=== PATIENT | male | born 1970 | race Caucasian/White ===

== ENCOUNTER 2024-08-26 12:11 | Emergency (ER) | payer MEDICAID, SELFPAY ==
--- NOTE | 2024-08-26 12:17 | XR_ITS ---
Examination: CT abdomen and pelvis without contrast. Coronal 3-D reconstructions. Sagittal 2-D reconstructions. Date and time of exam:August 26, 2024 1409 hrs. Comparison April 06, 2014 Indications: Right-sided flank pain beginning 3 days ago CTDI: vol (mGy): 8.33 DLP: (mGycm): 561 Technique: Axial images of the abdomen have been obtained, 3 mm slice thickness Intravenous contrast material has not been administered. Low dose protocols were performed. One or more of the following dose reduction techniques were used; automated exposure control, adjustment of the mA and/or KV according to patient size, use of iterative reconstruction technique. Findings: Mild nodular parenchymal disease left base No focal liver or splenic lesion No gallstones No pancreatic or adrenal mass Mild right hydronephrosis and perinephric stranding secondary to 2 mm distal right ureterovesical junction calculus Aorta normal size No bowel obstruction Normal appendix No bladder mass Impression: Mild right hydronephrosis secondary to 2 mm distal right ureterovesical junction calculus
--- NOTE | 2024-08-26 12:18 | PD.EDADULT ---
ED General RME/HPI General Chief complaint: Abdominal Pain Stated complaint: RIGHT FLANK PAIN Time Seen by Provider: 08/26/24 12:16 Arrival date/time: 08/26/24 12:11 CC: Right flank pain HPI abrupt onset after waking up this morning, no prior history of similar events no OTC medicines taken for the pain, no regular scheduled medications no allergies no primary care doctor. EMS reports stable vital signs and route no pain medications given and route. Patient is holding himself rigidly in the gurney tachypneic secondary to the pain stating the pain radiates to the right inguinal crease. Related Data Home Medications ?Medication ?Instructions ?Recorded ?Confirmed No Known Home Medications 09/19/17 08/26/24 Previous Rx's ?Medication ?Instructions ?Recorded ketorolac 10 mg tablet 10 mg PO Q8H PRN pain 3 days #7 08/26/24 tabs ondansetron 4 mg disintegrating 4 mg PO Q8H #10 tabs 08/26/24 tablet Allergies Allergy/AdvReac Type Severity Reaction Status Date / Time No Known Allergies Allergy Verified 08/26/24 12:48 Review of Systems Review of Systems Narrative Review of Systems: GEN: No fever, no chills, no weight loss EYES: No discharge, no visual changes, no pain HEENT: No ear pain, no congestion, no sore throat PULM: No shortness of breath, no cough, no congestion CV: No chest pain, no dyspnea on exertion, no palpitations GI: No nausea, no vomiting, no diarrhea, no pain, no constipation : No frequency, no urgency, no dysuria MUSC/SKEL: No joint pain, + back pain SKIN: No rash PSYCH: No hallucinations, no depression HEME/LYMPH: No easy bleeding or bruising tendencies NEURO: No weakness, no headache Past Medical History Social History SMOKING STATUS: Never smoker ED Exam Narrative Physical exam: [General: In moderate discomfort not in any acute distress Head normocephalic HEENT: Within acceptable limits Neck is supple nontender Chest equal chest rise nontender to palpation Respiratory: Clear to auscultation no wheezes crackles or rubs CV: Rate rhythm is regular no murmurs rubs or clicks Abdomen is distended secondary to body habitus soft nontender no masses positive bowel sounds all 4 quadrants Back: Right CVA tenderness, no left CVA tenderness, no spinous process tenderness from cervical spine thoracic and lumbar spine Skin: Intact no petechiae rash induration ulceration or crepitus Extremities: Moving all extremity against resistance cap refill less than 2 seconds neurosensory intact Neuro: Awake alert oriented x3 Glascow coma 15 no focal deficits] Course Quality Measures none Orders Category Date Time Status Saline [Insert IV] NOW Care 08/26/24 12:[address] abdomen pelvis wo con Stat Exams 08/26/24 12:17 Completed CBC Stat Lab 08/26/24 12:44 Completed CMP [Comprehensive Metabolic Panel] Stat Lab 08/26/24 12:44 Completed Ketorolac Inj [Toradol Inj] Med 08/26/24 12:17 Discontinued 30 mg IVP X1 ONE oxyCODONE/APAP 5/325 [Percocet 5/325] Med 08/26/24 13:15 Discontinued 1 tab PO X1 ONE Vital Signs Vital signs: Vital Signs Temperature 97.8 F 08/26/24 12:19 Pulse Rate 105 H 08/26/24 12:19 Respiratory Rate 20 08/26/24 12:19 Blood Pressure 145/87 H 08/26/24 12:19 Pulse Oximetry (%) 96 08/26/24 12:19 Oxygen Delivery Method Room Air 08/26/24 12:[address] [facility] Patient data External records reviewed:: [facility] previous records and EMS form Clinical information provided by:: patient and EMS Social determinants that could affect healthcare access:: none Patient has the following chronic illnesses:: None How is presenting disease/condition affected by chronic disease/condition?: uneffected by Evaluation data The following diagnostics were reviewed and interpreted by me:: lab results and radiology exam(s) Lab and/or radiology exams considered but not ordered:: CBC shows no significant leukocytosis anemia thrombocytopenia The CMP shows an elevated creatinine of 1.4 but no electrolyte imbalances other renal impairment transaminitis or T. bili elevation. CT shows a 2 mm stone with hydro-. Interpretation Summary: Flank pain with secondary to a 2 mm stone and hydronephrosis Medications Medications considered but not ordered:: None Medication administrations:: Medication Administration History Discontinued Medications Ketorolac Tromethamine (Ketorolac Inj 30 Mg/Ml Vial) 30 mg IVP X1 ONE Stop: 08/26/24 12:18 Last Admin: 08/26/24 13:27 Dose: Not Given Documented By: DO Non-Admin Reason: Patient Refused Oxycodone/Acetaminophen (Oxycodone/Apap 5/325 Tablet) 1 tab PO X1 ONE Stop: 08/26/24 13:16 Last Admin: 08/26/24 13: Dose: 1 tab Documented By: DO None Consultations Consultation(s) initiated? (list below): No Diagnosis Differential Diagnosis ED Complaint MDM: Hydroureter hydronephrosis urolithiasis Most likely diagnosis given after review of the tests above:: Urolithiasis Admission Indicated Admission indicated?: not indicated Explain why admission is indicated or not indicated:: Stable for outpatient follow-up Admission Request Was there a request for admission?: No Disposition Plan Disposition Plan: Discharge Discharge Attestation Discharge Attestation: The patient and all family members were given an opportunity to ask questions and understood the discharge instructions. Discharge instructions specifically effects, indications for sooner follow up or return to the emergency department, and the expected course of current diagnosis. Patient condition: Stable Medical Decision Making Differential Diagnosis Differential Diagnosis: Hydroureter hydronephrosis urolithiasis Lab Data 08/26/24 12:44 08/26/24 12:44 Labs: Lab Results 08/26/24 Range/Units 12:44 WBC 11.0 H (3.8-10.6) Thou/mm3 RBC 5.17 (4.50-5.90) Miln/mm3 Hgb 15.7 (13.5-16.0) g/dL Hct 43.4 (41.0-53.0) % MCV 84 (80-100) fL MCH 30.4 (25.0-35.0) pg MCHC 36.2 (31.0-37.0) g/dl RDW Std Deviation 36.4 (35.1-43.9) fL Plt Count 215 (140-440) Thou/mm3 Neut % (Auto) 71 (37-80) % Lymph % (Auto) 22 (10-50) % Wilkinson % (Auto) 7 (0-12) % Eos % (Auto) 1 (0-10) % Baso % (Auto) 0 (0-2.5) % Neut # (Auto) 7.8 H (1.8-7.7) Thou/mm3 Lymph # (Auto) 2.4 (1.0-4.8) Thou/mm3 Wilkinson # (Auto) 0.7 (0.0-0.8) Thou/mm3 Eos # (Auto) 0.1 (0.0-0.5) Thou/mm3 Baso # (Auto) 0.0 (0.0-0.2) Thou/mm3 Immature Gran # (Auto) 0.03 H (0.00-0.00) Thou/mm3 Absolute Nucleated RBC 0.00 (0.00-0.00) Thou/mm3 Immature Gran % 0 (0-0) % Nucleated RBC % 0 (0) /100 WBC Sodium 135 L (136-145) mMol/L Potassium 3.9 (3.4-5.1) mMol/L Chloride 101 (98-107) mMol/L Carbon Dioxide 24.0 (20.0-31.0) mMol/L Anion Gap 10 (7-16) BUN 17 (9-23) mg/dL Creatinine 1.4 H (0.6-1.3) mg/dL Estim Creat Clear Calc 70.7 (>60) mL/min eGFR > 60 (60 - ) See Note BUN/Creatinine Ratio 12 (12-20) Ratio Glucose 115 H (74-106) mg/dL Calculated Osmolality 272 L (275-295) Calcium 9.6 (8.3-10.6) mg/dL Corrected Calcium 9.6 (8.5-10.1) mg/dL Total Bilirubin 1.0 (0.3-1.2) mg/dL AST 28 (0-34) U/L ALT 40 (10-49) U/L Alkaline Phosphatase 96 (46-116) U/L Total Protein 7.2 (5.7-8.2) gm/dL Albumin 4.1 (3.5-5.0) gm/dL Globulin 3.1 (2.3-3.5) gm/dL Albumin/Globulin Ratio 1.3 (1.2-2.2) Discharge Plan Plan Patient Disposition: HOME (Self Care) Patient condition on transfer: Stable Prescriptions/Referrals Prescriptions/Med Rec: New ketorolac 10 mg tablet 10 mg PO Q8H PRN (Reason: pain) 3 Days Qty: 7 0RF ondansetron 4 mg tablet,disintegrating 4 mg PO Q8H Qty: 10 0RF No Action No Known Home Medications Referrals: Louie De Leon MD [Physician] - In 1 week Problem List Clinical Impression: Urolithiasis, Flank pain Patient/Caregiver Discharge Instructions Education Materials: Identifying Kidney Stones Additional Instructions: Take the medications as prescribed drink plenty of water follow-up with the doctor listed above. If there is worsening of symptoms spite of the medications return the emergency room for reevaluation. Print Language: [place] Island[place] Stand Alone Forms: [employer] Award Info., Patient Portal Info Letter, Work/School Release PA/LACE FINISHER Supervising Physician PA/LACE FINISHER Supervising Physician: Rayray Polo ENP
[2024-08-26 12:19] VITALS: BP 145/87; PULSE 105; RESP 20; TEMP 36.6; O2SAT 96
[2024-08-26 12:20] VITALS: BMI 33.4
[2024-08-26 12:44] VITALS: PULSE 66; RESP 18; O2SAT 98
--- NOTE | 2024-08-26 12:49 | PC.NURSE ---
PT BROUGHT IN BY EMS WITH C/O R FLANK PAIN SINCE THIS AM. PT STATES THAT HE WAS JUST SITTING DOWN WHEN PAIN STARTED. PT RATE PAIN 10/10. PT ALSO C/O SOB. NO RESPIRATORY DISTRESS NOTED. PT IN ROOM 4 AT THIS TIME
[2024-08-26 12:55] LABS: Basophils % (Auto) 0 % (0-2.5); Eosinophils # (Auto) 0.1 Thou/mm3 (0.0-0.5); Eosinophils % (Auto) 1 % (0-10); Hematocrit 43.4 % (41.0-53.0); Hemoglobin 15.7 g/dL (13.5-16.0); Immature Granulocytes % (Auto) 0 % (0-0); Immature Granulocytes Auto 0.03 Thou/mm3 (0.00-0.00); Lymphocytes # (Auto) 2.4 Thou/mm3 (1.0-4.8); Lymphocytes % (Auto) 22 % (10-50); Mean Corpuscular HGB Conc 36.2 g/dl (31.0-37.0); Mean Corpuscular Hemoglobin 30.4 pg (25.0-35.0); Mean Corpuscular Volume 84 fL (80-100); Monocytes # (Auto) 0.7 Thou/mm3 (0.0-0.8); Monocytes % (Auto) 7 % (0-12); Neutrophils # (Auto) 7.8 Thou/mm3 (1.8-7.7); Neutrophils % (Auto) 71 % (37-80); Nucleated Red Blood Cell % 0 /100 WBC (0); Platelet Count 215 Thou/mm3 (140-440); RDW Standard Deviation 36.4 fL (35.1-43.9); Red Blood Count 5.17 Miln/mm3 (4.50-5.90)
[2024-08-26 13:16] LABS: Alanine Aminotransferase 40 U/L (10-49); Albumin, Serum 4.1 gm/dL (3.5-5.0); Albumin/Globulin Ratio 1.3 (1.2-2.2); Alkaline Phosphatase 96 U/L (46-116); Anion Gap 10 (7-16); Aspartate Amino Transferase 28 U/L (0-34); BUN/Creatinine Ratio 12 Ratio (12-20); Blood Urea Nitrogen 17 mg/dL (9-23); Calcium 9.6 mg/dL (8.3-10.6); Calcium (Corrected) 9.6 mg/dL (8.5-10.1); Chloride 101 mMol/L (98-107); Creatinine (Component) 1.4 mg/dL (0.6-1.3); Estimated Creatinine Clearance 70.7 mL/min (>60); Globulin 3.1 gm/dL (2.3-3.5); Glucose 115 mg/dL (74-106); Osmolality,Calculated 272 (275-295); Potassium 3.9 mMol/L (3.4-5.1); Sodium 135 mMol/L (136-145); Total Protein 7.2 gm/dL (5.7-8.2); eGFR > 60 See Note
[2024-08-26] MEDS: oxyCODONE/APAP 5/325 TABLET 1 TAB PO (13:25)
[2024-08-26 14:56] VITALS: BP 130/82; PULSE 71; RESP 19; TEMP 36.7; O2SAT 92
[2024-08-26 15:57] VITALS: BP 109/76; PULSE 68; RESP 18; O2SAT 94
== END 2024-08-26 15:57 | disposition home or self-care (01) ==
PROVIDERS: Registered Nurse General Practice; Emergency Provider Emergency Medicine
DX: N13.2 Hydronephrosis with renal and ureteral calculous obstruction (principal)
CPT/HCPCS: 36415; 74176; 80053; 85025; 99284; A9270

== ENCOUNTER 2025-04-06 09:45 | Emergency (ER) | payer MEDICAID, SELFPAY ==
[2025-04-06 09:46] VITALS: BMI 31.9
[2025-04-06 10:24] VITALS: BP 118/82; PULSE 86; RESP 18; TEMP 36.9; O2SAT 96
--- NOTE | 2025-04-06 10:48 | PD.EDADULT ---
ED General RME/HPI General Chief complaint: General Adult/Misc Complain Stated complaint: REQUESTING STD CHECK Time Seen by Provider: 04/06/25 09:50 Arrival date/time: 04/06/25 09:45 This is a 55-year-old male that is accompanied by his significant other with complaints of wanting an STD check. Patient significant other was positive for trichomonas and they are still awaiting other cultures. Patient wants to get treated for this and checked for possible STDs. Patient has no symptoms patient has no complaints. Related Data Home Medications ?Medication ?Instructions ?Recorded ?Confirmed No Known Home Medications 09/19/17 08/26/24 Previous Rx's ?Medication ?Instructions ?Recorded ondansetron 4 mg disintegrating 4 mg PO Q8H #10 tabs 08/26/24 tablet Allergies Allergy/AdvReac Type Severity Reaction Status Date / Time No Known Allergies Allergy Verified 04/06/25 09:49 Review of Systems Review of Systems Systems Reviewed: All systems reviewed, normal except as documented Past Medical History Social History SMOKING STATUS: Never smoker ED Exam Narrative Physical exam: VITAL SIGNS: Reviewed. GENERAL APPEARANCE: Alert and interactive, follows commands, no acute distress HEAD AND FACE: Non-traumatic. ENT: PERRL, conjuctiva pink and clear, eyelid no trauma, Mucous membrane moist. NECK: Supple, nontender, no nuchal rigidity. CHEST: No tenderness, no crepitus, no paradoxical movement, no retractions. LUNGS: breathing even and unlabored HEART: Regular rate, cap refill less than 2 seconds ABDOMEN: Soft, nondistended, no guarding, nontender, no rebound, no masses, NEUROLOGICAL: Gross motor function intact sensory function intact, Appropriate for age. MUSCULOSKELETAL: low back nontender, full range of motion. EXTREMITIES: No redness no swelling no skin breakdown on bilateral foot and leg. Distal neurovascular status intact bilateral foot SKIN: Color pink, dry, no rash, no lacerations, no abrasions, no contusions. Course Quality Measures none Orders Category Date Time Status Urinalysis, C/S if Indicated Stat Lab 04/06/25 10:40 Completed Metoclopramide [Reglan] Med 04/06/25 12:42 Discontinued 10 mg PO X1 ONE Ondansetron Odt [Zofran Odt] Med 04/06/25 13:12 Discontinued 4 mg PO X1 ONE metroNIDAZOLE [Flagyl] Med 04/06/25 12:42 Discontinued 2,000 mg PO X1 ONE Vital Signs Vital signs: Vital Signs Temperature 98.4 F 04/06/25 10:24 Pulse Rate 86 04/06/25 10:24 Respiratory Rate 18 04/06/25 10:24 Blood Pressure 118/82 04/06/25 10:24 Pulse Oximetry (%) 96 04/06/25 10:24 Oxygen Delivery Method Room Air 04/06/25 10:24 Discharge Plan Plan Patient Disposition: HOME (Self Care) Patient condition on transfer: Stable Prescriptions/Referrals Prescriptions/Med Rec: No Action No Known Home Medications ondansetron 4 mg tablet,disintegrating 4 mg PO Q8H Qty: 10 0RF Referrals: No Primary/Family,Physician [Primary Care Provider] - In 1 week Problem List Clinical Impression: Exposure to STD, Exposure to trichomonas Patient/Caregiver Discharge Instructions Discharge Activity: activity as tolerated Education Materials: ED Testing for Suspected STI Additional Instructions: Follow up with primary provider in 1-2 days. Come back to ED if symptoms change or worsen Print Language: [place] Stand Alone Forms: [employer] Award Info., Patient Portal Info Letter PA/SIDE LASTER STAPLE Supervising Physician PA/SIDE LASTER [employer]APLE Supervising Physician: clay DAMIAN Narrative MDM hospital course (for use when minimal MDM required): After talking to patient at length it appears that patient's significant other only was diagnosed with trichomonas. There was no other STDs found. Will treat patient for trichomonas. Will give him a one-time dose of 2 g of metronidazole. I did send a GC chlamydia for patient to follow-up. Patient told to come back to the emergency room if symptoms change or worsen. Patient not having any penile discharge or any other discomfort. I did check a urine and urine looks unremarkable. Patient verbalized understanding and feels comfortable plan of care. Dragon dictation: Although this document has been carefully reviewed, there may still be some phonetic and other typographical errors. These errors are purely grammatical due to imperfections in the software program and should not be construed in any way to compromise the substance of the patient's medical care during this visit. Clinical Information Provided by: patient [place] [facility] [place] Meds/Rx considered, not ordered None Labs/Rad/Tests considered, not ordered None Chronic Illness/Social Conditions which may negatively complicate care or outcome(s)-explain: None or not applicable EKG EKG not done Labs Labs: interpreted by me and see narrative above Medication Administration(s) Medication Administration History Discontinued Medications Metoclopramide HCl (Metoclopramide 5 Mg Tablet) 10 mg PO X1 ONE Stop: 04/06/25 12:43 Last Admin: 04/06/25 13:18 Dose: 10 mg Documented By: ARNULFO Metronidazole (Metronidazole 250 Mg Tablet) 2,000 mg PO X1 ONE Stop: 04/06/25 12:43 Last Admin: 04/06/25 13:18 Dose: 2,000 mg Documented By: ARNULFO Ondansetron HCl (Ondansetron Odt 4 Mg Tabrap) 4 mg PO X1 ONE; Protocol Stop: 04/06/25 13:13 Last Admin: 04/06/25 13:20 Dose: Not Given Documented By: ARNULFO Non-Admin Reason: Cancelled by Provider Diagnosis Differential Diagnosis ED Complaint MDM: STD such as chlamydia, gonorrhea, syphilis, trichomonas.
[2025-04-06 11:01] LABS: Collection Type, Urine Voided
[2025-04-06 12:11] LABS: Bilirubin,Urine Negative (Negative); Blood,Urine Negative (Negative); Clarity,Urine Clear (Clear/Hazy); Color,Urine Yellow (Lt Yel-Yel); Culture Indicated,Urine Not Indicated; Glucose, Urine Negative (Negative); Ketones,Urine Negative (Negative); Leukocyte Esterase,Urine Negative (Negative); Nitrite,Urine Negative (Negative); PH,Urine 6.0 (5.0-7.0); Protein,Urine Trace (Neg - Trace); RBC,Urine 2 /hpf (0-3); Specific Gravity,Urine 1.032 (1.001-1.035); Squamous Epithelial Cell,Urine < 1 /hpf (0-5); Urobilinogen,Urine 2.0 mg/dL (0.0-1.0); WBC,Urine 1 /hpf (0-5)
[2025-04-06] MEDS: METOCLOPRAMIDE 5 MG TABLET 10 MG PO (13:18)
== END 2025-04-06 13:29 | disposition home or self-care (01) ==
PROVIDERS: Nurse Practitioner Family; Emergency Provider Emergency Medicine
DX: A59.9 Trichomoniasis, unspecified (principal)
CPT/HCPCS: 81001; 87491; 87591; 87661; 99283; A9270